=== PATIENT | male | born 1955 | race Caucasian/White ===

== ENCOUNTER 2021-02-18 10:41 | Day surgery (SDC) | payer MEDICARE ==
[2021-02-18] VITALS (12 sets, daily range): BP systolic 108–159; BP diastolic 63–90; PULSE 57–65; TEMP 98.4
[~2021-02-18] VITALS: Ht 193 cm; Wt 143.2 kg
[2021-02-18] MEDS ORDERED: PRINZIDE 25 MG-1 TAB PO (10:57)
[2021-02-18] MEDS ORDERED: NORVASC 5MG5 MG/TAB PO (10:58)
[2021-02-18] MEDS ORDERED: GLUCOPHAGE1000 MG PO (10:58)
[2021-02-18] MEDS ORDERED: BASAGLAR K100 UNIT/1 SQ (10:59)
[2021-02-18] MEDS ORDERED: LOPRESSOR 225 MG/TAB PO (11:00)
[2021-02-18] MEDS ORDERED: LIPITOR20 MG PO (11:01)
[2021-02-18 11:27] LABS: HEMATOCRIT 41.8 % (42.0-52.0); HEMOGLOBIN 13.9 g/dl (13.5-18.0); MEAN CELL VOLUME 82 fl (80.0-100.0); MEAN CORPUSCULAR HEMOGLOBIN 27 pg (27.0-31.0); MEAN CORPUSCULAR HGB CONC 33 g/dl (33.0-37.0); MEAN PLATELET VOLUME 9.4 fl (7.4-10.4); PLATELET COUNT 260 K/mm3 (130-400); RED BLOOD COUNT 5.12 M/mm3 (4.20-5.60)
[2021-02-18 11:34] LABS: INR 1.1 (0.8-3.0); PROTHROMBIN TIME 12.2 SECONDS (9.7-12.8)
[2021-02-18 11:37] LABS: CALCIUM 8.8 mg/dL (8.4-10.2); CREATININE, serum 0.76 (0.66-1.25); PARTIAL THROMBOPLASTIN TIME 33.3 SECONDS (26.0-37.0); POTASSIUM 3.8 mmol/L (3.4-5.0)
--- NOTE | 2021-02-18 12:47 | NUR ---
SEE MERGE FOR ALL MEDICATION ADMINISTRATION TIMES, INTRA AND POST SEDATION ASSESSMENTS
--- NOTE | 2021-02-18 17:21 | NUR ---
Discharge instructions given to pt.pt verbalizes understanding.INT removed,catheter tip intact.Pt escorted out via wheelchair by this nurse.
== END 2021-02-18 18:17 | disposition home or self-care (01) ==
LOC: COL.CAR 10:41
PROVIDERS: Internal Medicine Cardiovascular Disease
DX: R06.09 Other forms of dyspnea (principal); I49.3 Ventricular premature depolarization; R00.2 Palpitations; I10 Essential (primary) hypertension; E78.5 Hyperlipidemia, unspecified; E11.9 Type 2 diabetes mellitus without complications; Z79.84 Long term (current) use of oral hypoglycemic drugs; Z20.822 Contact with and (suspected) exposure to COVID-19
CPT/HCPCS: J1644; J2250; J3010; J7030

== ENCOUNTER → 2024-09-20 | Outpatient (CLI) | payer MEDICARE, OTHER ==
[~2024-09-20] MED LIST: BASAGLAR K100 UNIT/1 SQ; GLUCOPHAGE1000 MG PO; Iohexol 300 - 10 ML VIAL IV ONE; LIPITOR20 MG PO; LOPRESSOR 225 MG/TAB PO; NORVASC 5MG5 MG/TAB PO; PRINZIDE 25 MG-1 TAB PO; Triamcinolone 40 MG/ML 1 ML VIAL IJ ONE
== END ==
LOC: COL.RAD 12:03
DX: M25.551 Pain in right hip (principal)
CPT/HCPCS: J0665; J3301; Q9967